=== PATIENT | male | born 1970 | race Caucasian/White ===

== ENCOUNTER 2019-06-09 12:23 | Emergency (ER) | payer MEDICARE, OTHER ==
[~2019-06-09] VITALS: Ht 172.7 cm; Wt 90.5 kg
[~2019-06-09 12:23] MED LIST: COMBIVENT RESPIM4 GM INH; CYCLOBENZAPRINE10 MG PO; DEPAKOTE ER500 MG PO; DEPAKOTE500 MG PO; MINIPRESS2 MG PO; MOBIC7.5 MG PO; PERCOCET 10/3251 TA1 PO; RESTORIL15 MG PO; TRAZODONE HCL150 MG PO
[2019-06-09 12:57] VITALS: BP 115/78; Ht 172.7 cm; Wt 90.5 kg
[2019-06-09] MEDS ORDERED: SEROQUEL100 MG PO (13:00)
== END 2019-06-09 14:58 | disposition left against medical advice (07) ==
LOC: D.ER 12:23
DX: M25.511 Pain in right shoulder (principal)